=== PATIENT | female | born 1950 ===

== ENCOUNTER 2022-08-28 17:41 | Observation (INO) | payer OTHER, SELFPAY ==
--- NOTE | 2022-08-28 17:42 | DI.RAD.S_ITS ---
PROCEDURE: XR CHEST 1V INDICATIONS: chest pain TECHNIQUE: One view of the chest was acquired. COMPARISON: None. FINDINGS: Surgical changes and devices: None. Lungs and pleura: Lungs are clear. No pleural effusions or pneumothorax. Mediastinum: Mediastinal contours appear normal. Heart size is normal. Bones and chest wall: No suspicious bony lesions. Overlying soft tissues appear unremarkable. IMPRESSION: No acute process. Dictated by: Tony Beck M.D. on 08/28/2022 at 18:10 Approved by: Tony Beck M.D. on 08/28/2022 at 18:11
[2022-08-28 17:45] VITALS: BP 137/88; PULSE 60; RESP 18; TEMP 36.6; O2SAT 95; BMI 32.8
[2022-08-28 18:02] LABS: INR 0.9 (0.9-1.3); Prothrombin Time 10.3 SECONDS (10.1-12.7)
[2022-08-28 18:03] LABS: Add Manual Diff / Slide Review NO; Basophils Absolute Auto 0 /uL (0-100); Basophils Percent Auto 0.4 % (0-2); Eosinophils Absolute Auto 200 /uL (0-450); Eosinophils Percent Auto 1.6 % (2-4); Hematocrit 42.8 % (36-46); Hemoglobin 14.7 g/dL (12.0-16.0); Lymphocytes Absolute Auto 4400 /uL (1100-4500); Lymphocytes Percent Auto 36.4 % (25-40); Mean Corpuscular HGB Conc 34.3 % (30-36); Mean Corpuscular Hemoglobin 31.8 PG (26-34); Mean Corpuscular Volume 92.9 fL (80-100); Monocytes Absolute Auto 800 /uL (0-900); Monocytes Percent Auto 6.9 % (3-14); Neutrophils Absolute Auto 6600 /uL (1500-7000); Neutrophils Percent Auto 54.7 % (50-75); Platelet Count 250 X10^3/uL (150-400); Red Blood Cell Count 4.61 X10^6/uL (4.0-5.2); Red Cell Distribution Width 14.2 % (11.6-14.8); White Blood Cell Count 12.1 X10^3/uL (4.5-11.0)
[2022-08-28 18:04] LABS: PTT Partial Thromboplastin Tim 27 SECONDS (26-36)
[2022-08-28 18:07] LABS: Alanine Aminotransferase 24 IU/L (<35); Albumin 4.6 g/dL (3.5-5.0); Albumin Globulin Ratio 1.4 (1.0-2.8); Alkaline Phosphatase 143 U/L (38-126); Aspartate Aminotransferase 28 IU/L (14-36); BUN Creatinine Ratio 20.2 (6-22); Bilirubin Total 0.5 mg/dL (0.2-1.3); Blood Urea Nitrogen 20 mg/dL (7-17); Calcium 9.4 mg/dL (8.4-10.2); Carbon Dioxide 24 mmol/L (22-32); Chloride 106 mmol/L (98-107); Creatine Kinase 196 U/L (30-135); Estimated Glomerular Filt Rate > 60 mL/min (>60); Globulin 3.2 g/dL (1.7-4.1); Glucose 140 mg/dL (80-110); HEMOLYSIS 27 (0-50); Lipase 243 U/L (23-300); Magnesium 2.4 mg/dL (1.6-2.3); Potassium 3.9 mmol/L (3.4-5.1); Sodium 141 mmol/L (137-145); Total Protein 7.8 g/dL (6.3-8.2)
[2022-08-28 18:18] LABS: Troponin I < 0.012 ng/mL (0.01-0.034)
--- NOTE | 2022-08-28 18:33 | ED.SYNCOPE ---
HPI - Syncope General Chief Complaint: Syncope Stated Complaint: Near Syncope Time Seen by Provider: 08/28/22 18:20 Source: patient Mode of arrival: EMS Limitations: no limitations History of Present Illness HPI narrative: Patient brought in by ambulance for syncopal episode. Blood sugar 133. Patient denies recent or prevent headache chest pain palpitations shortness of breath back pain abdominal pain numbness or tingling. Patient states she had a normal day today with her usual activities. Did some cleaning at home. She did some rowing in her boat as she usually does. Did not feel like she was heat exhausted. Did not spend a lot of time outside. She has been eating through today although she is not been feeling hungry. No black or bloody stools. No nausea or vomiting or diarrhea. This is never happened to her before. She states she was standing and waiting to hear from her bicycle riding group where they were in ago, she felt dizzy, her companions caught her and lowered her down to the ground. No seizure activity. Patient is awake alert oriented x4 at this time. Fast exam is negative. No prior history of heart attack strokes or diabetes. No history of arrhythmia. No blood clots in legs or lungs. No history aortic aneurysm or dissection. No prevent diaphoresis or nausea Related Data Allergies Allergy/AdvReac Type Severity Reaction Status Date / Time iodine Allergy Severe Anaphylaxis Verified 08/28/22 17:48 Sulfa (Sulfonamide Allergy Severe Hives Verified 08/28/22 17:48 Antibiotics) Review of Systems Review of Systems Narrative: GENERAL: negative chills, fatigue, malaise, fever, sweats. HEENT: negative sinus pain, ear pain, sore throat RESPIRATORY: negative dyspnea, cough CARDIOVASCULAR: negative chest pain, palpitations GASTROINTESTINAL: negative nausea, vomiting, abdominal pain : negative dysuria, frequency, hematuria MUSCULOSKELETAL: negative muscle or bony pain SKIN: negative rash, skin lesions NEUROLOGIC: negative weakness, numbness, positive syncope positive dizziness ROS Unobtainable: All systems reviewed & are unremarkable except as noted in HPI and below Patient History Social History household members: spouse Smoking Status: Never smoker Smoking Status: Never smoker alcohol intake frequency: a few times a week Substance Use Type: does not use Exam Narrative Exam Narrative: GENERAL: in no distress, not toxic not dyspneic HEAD: Normocephalic. EYES: Pupils equal round ENT: Mucous membranes moist. NECK: Trachea midline. CARDIOVASCULAR: Regular rate and rhythm, soft systolic murmur RESPIRATORY: Clear to auscultation. Breath sounds equal bilaterally. No wheezes, rales, or rhonchi. GASTROINTESTINAL: Abdomen soft, non-tender EXTREMITIES: No gross deformities. BACK: No flank tenderness. NEURO: AOx4. Clear speech no facial droop light touch intact bilateral face hands and legs. Strong equal clinic manager. She is got a rag negative pronator drift. Fast exam is negative SKIN: Warm and dry PSYCH: Not anxious, is cooperative Initial Vital Signs Initial Vital Signs: Vital Signs Temperature 97.8 F 08/28/22 17:45 Pulse Rate 60 08/28/22 17:45 Respiratory Rate 18 08/28/22 17:45 Blood Pressure 137/88 08/28/22 17:45 Pulse Oximetry 95 08/28/22 17:45 Oxygen Delivery Method Room Air 08/28/22 17:45 Course Orders Ordered: ED Orders 08/29/22 05:20 Basic Metabolic Panel Routine Complete Blood Count AUTO DIFF Routine Acetaminophen (Acetaminophen 325 Mg Tablet) 650 mg PO Q6H PRN PRN Reason: Fever/Mild Pain (1-3) Enoxaparin Sodium (Enoxaparin 40 Mg/0.4 Ml Syringe) 40 mg SUBCUT DAILY SOBIA Ondansetron HCl (Ondansetron 4 Mg/2 Ml Inj) 4 mg IV Q8HR PRN PRN Reason: Nausea And Vomiting Discontinued Medications Sodium Chloride (Normal Saline 0.9%) 1,000 mls @ 1,000 mls/hr IV BOLUS ONE Stop: 08/28/22 22:56 Last Admin: 08/28/22 22:19 Dose: 1,000 mls/hr Documented By: MS Vital Signs Vital signs: Vital Signs - 8 hr 08/28/22 17:45 Temperature 97.8 F Pulse Rate 60 Respiratory Rate 18 Blood Pressure 137/88 Pulse Oximetry 95 Oxygen Delivery Method Room Air MDM - Syncope Lab Data 08/28/22 17:40 08/28/22 17:40 Labs: Lab Results 08/28/22 08/28/22 08/28/22 Range/Units 17:40 17:40 17:40 WBC 12.1 H (4.5-11.0) X10^3/uL RBC 4.61 (4.0-5.2) X10^6/uL Hgb 14.7 (12.0-16.0) g/dL Hct 42.8 (36-46) % MCV 92.9 (80-100) fL MCH 31.8 (26-34) PG MCHC 34.3 (30-36) % RDW 14.2 (11.6-14.8) % Plt Count 250 (150-400) X10^3/uL Neut % (Auto) 54.7 (50-75) % Lymph % (Auto) 36.4 (25-40) % [place] % (Auto) 6.9 (3-14) % Eos % (Auto) 1.6 L (2-4) % Baso % (Auto) 0.4 (0-2) % Neut # (Auto) 6600 (4155-4262) /uL Lymph # (Auto) 4400 (7925-4876) /uL [place] # (Auto) 800 (0-900) /uL Eos # (Auto) 200 (0-450) /uL Baso # (Auto) 0 (0-100) /uL PT 10.3 (10.1-12.7) SECONDS INR 0.9 (0.9-1.3) APTT 27 (26-36) SECONDS Sodium 141 (137-145) mmol/L Potassium 3.9 (3.4-5.1) mmol/L Chloride 106 (98-107) mmol/L Carbon Dioxide 24 (22-32) mmol/L BUN 20 H (7-17) mg/dL Creatinine 0.99 (0.52-1.04) mg/dL Estimated GFR > 60 (>60) mL/min BUN/Creatinine Ratio 20.2 (6-22) Glucose 140 H (80-110) mg/dL Calcium 9.4 (8.4-10.2) mg/dL Magnesium 2.4 H (1.6-2.3) mg/dL Total Bilirubin 0.5 (0.2-1.3) mg/dL AST 28 (14-36) IU/L ALT 24 (<35) IU/L Alkaline Phosphatase 143 H (38-126) U/L Total Creatine Kinase 196 H (30-135) U/L CK-MB (CK-2) 2.00 (<2.37) ng/mL CK-MB (CK-2) Rel Index 1.0 L (1.5-5.0) % Troponin I < 0.012 (0.01-0.034) ng/mL Total Protein 7.8 (6.3-8.2) g/dL Albumin 4.6 (3.5-5.0) g/dL Globulin 3.2 (1.7-4.1) g/dL Albumin/Globulin Ratio 1.4 (1.0-2.8) Lipase 243 (23-300) U/L SARS-CoV-2 (PCR) (Negative) 08/28/22 Range/Units 19:38 WBC (4.5-11.0) X10^3/uL RBC (4.0-5.2) X10^6/uL Hgb (12.0-16.0) g/dL Hct (36-46) % MCV (80-100) fL MCH (26-34) PG MCHC (30-36) % RDW (11.6-14.8) % Plt Count (150-400) X10^3/uL Neut % (Auto) (50-75) % Lymph % (Auto) (25-40) % [place] % (Auto) (3-14) % Eos % (Auto) (2-4) % Baso % (Auto) (0-2) % Neut # (Auto) (9000-6090) /uL Lymph # (Auto) (9261-8092) /uL [place] # (Auto) (0-900) /uL Eos # (Auto) (0-450) /uL Baso # (Auto) (0-100) /uL PT (10.1-12.7) SECONDS INR (0.9-1.3) APTT (26-36) SECONDS Sodium (137-145) mmol/L Potassium (3.4-5.1) mmol/L Chloride (98-107) mmol/L Carbon Dioxide (22-32) mmol/L BUN (7-17) mg/dL Creatinine (0.52-1.04) mg/dL Estimated GFR (>60) mL/min BUN/Creatinine Ratio (6-22) Glucose (80-110) mg/dL Calcium (8.4-10.2) mg/dL Magnesium (1.6-2.3) mg/dL Total Bilirubin (0.2-1.3) mg/dL AST (14-36) IU/L ALT (<35) IU/L Alkaline Phosphatase (38-126) U/L Total Creatine Kinase (30-135) U/L CK-MB (CK-2) (<2.37) ng/mL CK-MB (CK-2) Rel Index (1.5-5.0) % Troponin I (0.01-0.034) ng/mL Total Protein (6.3-8.2) g/dL Albumin (3.5-5.0) g/dL Globulin (1.7-4.1) g/dL Albumin/Globulin Ratio (1.0-2.8) Lipase (23-300) U/L SARS-CoV-2 (PCR) Negative (Negative) Imaging Data Chest x-ray: Radiologist's Impression: FINDINGS:? ? Surgical changes and devices:? None.? ? Lungs and pleura:? Lungs are clear.? No pleural effusions or pneumothorax.? ? Mediastinum:? Mediastinal contours appear normal.? Heart size is normal.? ? Bones and chest wall:? No suspicious bony lesions.? Overlying soft tissues appear unremarkable.? ? IMPRESSION:? No acute process. CT scan - head: Radiologist's Impression: PROCEDURE:? CT HEAD/BRAIN WO CON ? INDICATIONS:? Syncope ? TECHNIQUE:? Noncontrast 4.5 mm thick angled axial sections acquired from the foramen magnum to the vertex, with coronal and sagittal reformats.? For radiation dose reduction, the following was used:? automated exposure control, adjustment of mA and/or kV according to patient size.? ? COMPARISON:? None. ? FINDINGS:? Image quality:? Excellent.? ? CSF spaces:? Basal cisterns are patent.? No extra-axial fluid collections.? The ventricles are symmetric in size and shape.? ? Brain:? No intracranial bleeds or masses.? There is cerebral volume loss for age, with resultant ventricular and sulcal prominence.? There are periventricular and deep white matter chronic small vessel ischemic changes.? There is intracranial internal carotid artery atherosclerosis.? ? Skull and face:? Calvarium and visualized facial bones appear intact, without suspicious lesions.? ? Sinuses:? Visualized sinuses and mastoids are clear.? ? IMPRESSION:? No acute intracranial abnormality. MRI brain: Radiologist's Impression: [address] [address] Magnetic Resonance Report Signed Patient: Genevieve Grullon MR#: [id number] : 1950 Acct:[id number] Age/Sex: 71 / F Date of Service: 08/28/22 Loc: ED Accession Number: [id number] ?? Procedure: MR stroke Ordering Provider: Polo De La Paz MD PROCEDURE:? MR STROKE Pre- and post-contrast brain MRI, non-contrast brain MR angiogram, pre- and postcontrast neck MR angiogram ? INDICATIONS:? syncope ? TECHNIQUE:? Brain:? Noncontrast axial T1 spin echo, axial T2 fast spin echo, sagittal and axial FLAIR, coronal T2 fast spin echo, axial gradient echo, axial diffusion and ADC through the brain.? After the administration of contrast, axial 3D VIBE of the cranial vasculature and brain.? Brain MRA:? Non-contrast 3-D time of flight MR angiogram, with multiple mdkhxou-bmweznebe-aiygckqkjl (MIP) reformats performed.? Neck MRA:? Axial and sagittal TruFISP through the neck.? Coronal dynamic MR angiogram during administration of contrast in the arterial and venous phases, with 3-dimenstional pwyybbz-forkovcoh-pbshdiusfb (MIP) reformats constructed from subtraction images.? ? COMPARISON:? None. ? FINDINGS:? Image quality:? Excellent.? ? BRAIN:? CSF spaces:? Ventricles are normal in size and shape.? Basal cisterns are patent.? No extra-axial fluid collections.? Brain:? No intracranial bleeds or mass effects.? Mild diffuse cerebral volume loss.? Mild degree of patchy high FLAIR signal within the periventricular and subcortical white matter.? Rosales-white matter interface is normal.? Diffusion weighted images show no acute ischemic insults.? Brainstem appears normal.? Normal intravascular flow voids are present.? No abnormal intracranial enhancement.? Skull and face:? Calvarial marrow signal is normal.? Orbits appear normal.? Sinuses:? Sinuses and mastoids are clear.? ? BRAIN MR ANGIOGRAM:? Anterior circulation:? Intracranial internal carotid arteries are normal in size and enhancement.? The flow within the paired anterior cerebral arteries is normal and symmetric.? The flow within the middle cerebral arteries is normal and symmetric.? The anterior communicating artery is seen.? No stenoses, occlusions, or aneurysms.? Posterior circulation:? The visualized portions of the vertebral arteries demonstrate normal caliber, and join to form a normal appearing basilar artery.? The flow within the posterior cerebral arteries is normal and symmetric.? No stenoses, occlusions, or aneurysms.? ? NECK MR ANGIOGRAM:? Carotids:? Great vessels demonstrate a conventional anatomy as they arise from the aortic arch.? The origins of the common carotid arteries appear patent.? The calibers and courses of both common carotid arteries are normal.? The bifurcation regions appear normal bilaterally.? The internal carotid arteries demonstrate normal course and caliber. ? Posterior circulation:? The origins of the vertebral arteries appear patent.? More superior portions of both vertebral arteries demonstrate normal course and caliber, and join to form a normal appearing basilar artery.? Miscellaneous:? Subclavian arteries appear patent.? Pre-contrast images through the neck show no soft tissue abnormalities.? ? IMPRESSION:? ? BRAIN MRI:? 1. Volume loss and small vessel ischemic disease. 2. No acute process.? No recent infarct.? ? BRAIN MR ANGIOGRAM:? Negative cerebral MR angiography. ? NECK MR ANGIOGRAM:? 1. No internal carotid artery stenosis bilaterally. 2. Patent bilateral vertebral arteries. ? ? MDM Narrative Medical decision making narrative: Patient brought in by ambulance for syncopal episode. Blood sugar 133. Patient denies recent or prevent headache chest pain palpitations shortness of breath back pain abdominal pain numbness or tingling. Patient states she had a normal day today with her usual activities. Did some cleaning at home. She did some rowing in her boat as she usually does. Did not feel like she was heat exhausted. Did not spend a lot of time outside. She has been eating through today although she is not been feeling hungry. No black or bloody stools. No nausea or vomiting or diarrhea. This is never happened to her before. She states she was standing and waiting to hear from her bicycle riding group where they were in ago, she felt dizzy, her companions caught her and lowered her down to the ground. No seizure activity. Patient is awake alert oriented x4 at this time. Fast exam is negative. No prior history of heart attack strokes or diabetes. No history of arrhythmia. No blood clots in legs or lungs. No history aortic aneurysm or dissection. No prevent diaphoresis or nausea After history and exam CBC CMP magnesium urinalysis troponin EKG CT head chest x-ray no D-dimer at this time, patient has low risk for pulmonary embolism or dissection. Clinically not dissection or aneurysm. Patient experienced no pain. MDM CC: Syncope Complicating co-morbidities: None Data collected from: Patient and EMS Medical records reviewed: No previous visits here Differential considered: Includes but not limited to stroke seizure heart attack dehydration anemia arrhythmia aortic dissection pulmonary embolism Exam documented above, pertinent findings include: No focal neurological findings. Lab Test results independently reviewed as above. Pertinent findings: WBC 12.1 hemoglobin 14.7 hematocrit 42.8 platelets 250 INR 0.9 sodium 141 potassium 3.9 BUN 20 creatinine 0.99 glucose 140 AST 28 ALT 24 troponin less than 0.012 magnesium 2.4 Independently reviewed EKG as above right bundle-branch block sinus bradycardia [address] elevation or depression Imaging studies independently reviewed: Chest x-ray no acute process CT head as well as MRI stroke protocol no acute process Consultations: Spoke with hospitalist, dr ricci, will admit pt Treatments: Normal saline given by EMS Re-evaluations: Reviewed results with patient and . They do agree for admission. At this time laboratory studies imaging are reassuring Discussion: Appropriate for admission for observation for arrhythmia as well as balance workup for syncope including echocardiogram. I did reviewed with patient and agree for admit. I reviewed with hospitalist agrees for admit. Diagnosis: Syncope Discharge Plan Departure Patient Disposition: Admitted as Observation Clinical Impression: Syncope and collapse Admit Date/Time: 08/28/22 21:02 Admit Provider: Jamie Ricci
--- NOTE | 2022-08-28 18:34 | DI.CT.S_ITS ---
PROCEDURE: CT HEAD/BRAIN WO CON INDICATIONS: Syncope TECHNIQUE: Noncontrast 4.5 mm thick angled axial sections acquired from the foramen magnum to the vertex, with coronal and sagittal reformats. For radiation dose reduction, the following was used: automated exposure control, adjustment of mA and/or kV according to patient size. COMPARISON: None. FINDINGS: Image quality: Excellent. CSF spaces: Basal cisterns are patent. No extra-axial fluid collections. The ventricles are symmetric in size and shape. Brain: No intracranial bleeds or masses. There is cerebral volume loss for age, with resultant ventricular and sulcal prominence. There are periventricular and deep white matter chronic small vessel ischemic changes. There is intracranial internal carotid artery atherosclerosis. Skull and face: Calvarium and visualized facial bones appear intact, without suspicious lesions. Sinuses: Visualized sinuses and mastoids are clear. IMPRESSION: No acute intracranial abnormality. Dictated by: Tony Beck M.D. on 08/28/2022 at 18:59 Approved by: Tony Beck M.D. on 08/28/2022 at 18:59
--- NOTE | 2022-08-28 19:02 | DI.MRI.S_ITS ---
PROCEDURE: MR STROKE Pre- and post-contrast brain MRI, non-contrast brain MR angiogram, pre- and postcontrast neck MR angiogram INDICATIONS: syncope TECHNIQUE: Brain: Noncontrast axial T1 spin echo, axial T2 fast spin echo, sagittal and axial FLAIR, coronal T2 fast spin echo, axial gradient echo, axial diffusion and ADC through the brain. After the administration of contrast, axial 3D VIBE of the cranial vasculature and brain. Brain MRA: Non-contrast 3-D time of flight MR angiogram, with multiple npflqcb-buvhinahx-wxslktsyvc (MIP) reformats performed. Neck MRA: Axial and sagittal TruFISP through the neck. Coronal dynamic MR angiogram during administration of contrast in the arterial and venous phases, with 3-dimenstional zmzaxtb-wnbzlfrwl-eplmjdcthp (MIP) reformats constructed from subtraction images. COMPARISON: None. FINDINGS: Image quality: Excellent. BRAIN: CSF spaces: Ventricles are normal in size and shape. Basal cisterns are patent. No extra-axial fluid collections. Brain: No intracranial bleeds or mass effects. Mild diffuse cerebral volume loss. Mild degree of patchy high FLAIR signal within the periventricular and subcortical white matter. Rosales-white matter interface is normal. Diffusion weighted images show no acute ischemic insults. Brainstem appears normal. Normal intravascular flow voids are present. No abnormal intracranial enhancement. Skull and face: Calvarial marrow signal is normal. Orbits appear normal. Sinuses: Sinuses and mastoids are clear. BRAIN MR ANGIOGRAM: Anterior circulation: Intracranial internal carotid arteries are normal in size and enhancement. The flow within the paired anterior cerebral arteries is normal and symmetric. The flow within the middle cerebral arteries is normal and symmetric. The anterior communicating artery is seen. No stenoses, occlusions, or aneurysms. Posterior circulation: The visualized portions of the vertebral arteries demonstrate normal caliber, and join to form a normal appearing basilar artery. The flow within the posterior cerebral arteries is normal and symmetric. No stenoses, occlusions, or aneurysms. NECK MR ANGIOGRAM: Carotids: Great vessels demonstrate a conventional anatomy as they arise from the aortic arch. The origins of the common carotid arteries appear patent. The calibers and courses of both common carotid arteries are normal. The bifurcation regions appear normal bilaterally. The internal carotid arteries demonstrate normal course and caliber. Posterior circulation: The origins of the vertebral arteries appear patent. More superior portions of both vertebral arteries demonstrate normal course and caliber, and join to form a normal appearing basilar artery. Miscellaneous: Subclavian arteries appear patent. Pre-contrast images through the neck show no soft tissue abnormalities. IMPRESSION: BRAIN MRI: 1. Volume loss and small vessel ischemic disease. 2. No acute process. No recent infarct. BRAIN MR ANGIOGRAM: Negative cerebral MR angiography. NECK MR ANGIOGRAM: 1. No internal carotid artery stenosis bilaterally. 2. Patent bilateral vertebral arteries. Dictated by: Tony Beck M.D. on 08/28/2022 at 19:53 Approved by: Tony Beck M.D. on 08/28/2022 at 19:55
[2022-08-28 20:01] LABS: COVID19 -Nasal RAPID Negative (Negative)
[2022-08-28 21:26] VITALS: BMI 32.8
[2022-08-28 21:57] VITALS: BP 152/75; BP 158/78; BP 177/66; PULSE 52; PULSE 53; PULSE 55
--- NOTE | 2022-08-28 21:57 | DI.ECHO.S_ITS ---
[facility] +---------+ : : [address] : : : : [id number] : : : : Phone: [phone] Echocardiogram Report + + :Name: DANYA INIGUEZ Study Date: 08/29/2022 Height: 65 in : :[facility] ReadingLocation: Weight: 197 lb : : Gender: Female BSA: 2.0 m2 : :: 1950 Age: 71 yrs BP: 151/74 mmHg: :Reason For Study: SYNCOPE : :Ordering Physician: CHARI, : :KEEGAN Performed By: Radha Miller : :Referring: KEEGAN MARCELINO : + + Interpretation Summary The ejection fraction is estimated to be 60-65%. Diastolic parameters suggest probable normal left ventricular diastolic function and normal filling pressures. The right ventricle is normal in size and function. The IVC is dilated (diameter is greater than 2.1 cm) yet it collapses greater than 50% with a sniff. This suggests a right atrial pressure of 8 mm Hg. No significant valvular abnormallity. Procedure: A two-dimensional transthoracic echocardiogram with color flow and Doppler was performed. The study quality was technically adequate. There is no prior echocardiogram noted for this patient. The patient was in sinus bradycardia with heart rates between 53-60 bpm during the exam. Left Ventricle: The left ventricle is normal in size and wall thickness. The ejection fraction is estimated to be 60-65%. Left ventricular wall motion is normal. Diastolic parameters suggest probable normal left ventricular diastolic function and normal filling pressures. Right Ventricle: The right ventricle is normal in size and function. Atria: The left atrial size is normal. Right atrial size is normal. There is no Doppler evidence for an interatrial shunt. Mitral Valve: The mitral valve is normal in structure and function. There is trace mitral regurgitation. Aortic Valve: The aortic valve is trileaflet. The aortic valve opens well. There is no aortic valve stenosis. No aortic regurgitation is present. Tricuspid Valve: The tricuspid valve is normal in structure and function. There is a trace or physiologic amount of tricuspid regurgitation. Pulmonic Valve: The pulmonic valve leaflets are thin and pliable; valve motion is normal. There is trace pulmonic regurgitation. Great Vessels: The aortic root is normal size. The dimensions of the ascending aorta are normal. The IVC is dilated (diameter is greater than 2.1 cm) yet it collapses greater than 50% with a sniff. This suggests a right atrial pressure of 8 mm Hg. Pericardium/ Pleura There is no pericardial effusion. There is no pleural effusion. MMode/2D Measurements & Calculations LVIDd: 4.7 cm LVOT diam: 2.0 cm LVIDs: 3.4 cm Ao root diam: 2.6 cm FS: 26.8 % asc Aorta Diam: 2.9 cm IVSd: 0.72 cm LVPWd: 0.66 cm LV villanueva. diameter/BSA (cm/m^2): 2.4 LV sys. diameter/BSA (cm/m^2): 1.7 LA A2 area: 19.1 cm2 RA long axis: 4.8 cm LA A4 area: 12.4 cm2 RA area: 13.2 cm2 LA length (vol): 4.8 cm RA vol: 31.0 ml LA vol: 42.0 ml RA : 15.8 ml/m2 LA vol index: 21.4 ml/m2 IVC diam: 2.1 cm RVD1 (basal): 2.9 cm RVD2 (mid): 2.6 cm TAPSE: 2.5 cm Doppler Measurements & Calculations Ao V2 max: 174.8 cm/sec LVOT Max Aftab: 102.2 cm/sec Ao V2 mean: 121.7 cm/sec LV V1 max P.2 mmHg Ao max P.7 mmHg LV V1 VTI: 25.4 cm Ao mean P.6 mmHg KARI(I,D): 1.9 cm2 Ao V2 VTI: 41.6 cm KARI(V,D): 1.8 cm2 sev ratio: 0.61 KARI indexed to BSA (cm^2/m^2): 0.95 MV E max aftab: 103.8 cm/sec PA V2 max: 97.5 cm/sec MV A max aftab: 78.5 cm/sec PA V2 mean: 67.4 cm/sec MV E/A: 1.3 PA mean P.0 mmHg Med Peak E' Aftab: 10.5 cm/sec PA pr(Accel): 51.6 mmHg E/E' med: 9.8 Lat Peak E' Aftab: 11.0 cm/sec E/E' lat: 9.5 E/e' average: 9.7 MV dec time: 0.18 sec SVLVOT): 77.7 ml Reading Physician:PM
[2022-08-28] MEDS: SODIUM CHLORIDE 0.9% 1,000 ML 1000 ML IV (22:19)
--- NOTE | 2022-08-28 22:49 | PM.HP.1 ---
History of Present Illness History of Present Illness Date Patient Seen: 08/28/22 Time Patient Seen: 20:30 Chief complaint: Near Syncope Narrative: Ms. Grullon is a 71W with no significant past medical history who is brought in for a syncopal event. She is at baseline active. Today she rowed in the morning. This afternoon she was planning to go for a bike ride. She was standing waiting and felt sudden onset dizziness. She cant describe if it was more room spinning or lightheaded. She passed out and lost consciousness, her friends caught her and no head strike. She currently feels a little dehydrated, but at the time she was not, she thinks she feels dehydrated because has had nothing to drink since arriving in the ED. She was not outside in the heat much today. She was eating and drinking normally. She had no stood up suddenly or just went to the bathroom. She had no chest pain, palpitations or shortness of breath. She had no postictal confusion or witnessed seizure activity. Once she arrived to the ED she was feeling completely normal. In the ED workup was done, vitals notable for afebrile, heart rate 60s, respiratory rate 18, blood pressure 130s/80s, sats 95% on room air. Labs reviewed by me and WBC 12.1, hgb 14.7, plts 250. Na 141, BUN 20, creatinine 0.99. Troponin negative. Chest xray reviewed by me and and no acute process. CT head reviewed by me and no acute process. MRI brain with no acute process. She was admitted for further workup of syncope. [facility] Social History Smoking Status: Never smoker Meds Home Medications and Allergies Allergies Allergy/AdvReac Type Severity Reaction Status Date / Time iodine Allergy Severe Anaphylaxis Verified 08/28/22 17:48 Sulfa (Sulfonamide Allergy Severe Hives Verified 08/28/22 17:48 Antibiotics) Review of Systems Review of Systems Narrative: 14 systems reviewed and negative aside from what is noted in HPI Exam Vital Signs (past 8 hours): - 08/28/22 17:45 08/28/22 21:54 Temperature 97.8 F Pulse Rate 60 Respiratory Rate 18 Blood Pressure 137/88 Pulse Oximetry 95 Oxygen Delivery Method Room Air Room Air Oxygen Delivery Method Room Air Narrative Exam Narrative: GEN: no acute distress HEENT: dry mucous membranes, PERRL NECK: trachea midline, no JVD PULM: clear bilaterally, no wheezes, rhonchi, rales CV: regular, rate and rhythm, no murmurs ABD: soft, nontender, nondistended, no organomegaly, normal bowel sounds EXT: warm and well perfused with no edema NEURO: awake, alert, oriented, no focal deficits Objective Labs 08/28/22 17:40 08/28/22 17:40 Labs: Laboratory Results - last 24 hr 08/28/22 08/28/22 08/28/22 17:40 17:40 17:40 WBC 12.1 H RBC 4.61 Hgb 14.7 Hct 42.8 MCV 92.9 MCH 31.8 MCHC 34.3 RDW 14.2 Plt Count 250 Neut % (Auto) 54.7 Lymph % (Auto) 36.4 [place] % (Auto) 6.9 Eos % (Auto) 1.6 L Baso % (Auto) 0.4 Neut # (Auto) 6600 Lymph # (Auto) 4400 [place] # (Auto) 800 Eos # (Auto) 200 Baso # (Auto) 0 PT 10.3 INR 0.9 APTT 27 Sodium 141 Potassium 3.9 Chloride 106 Carbon Dioxide 24 BUN 20 H Creatinine 0.99 Estimated GFR > 60 BUN/Creatinine Ratio 20.2 Glucose 140 H Calcium 9.4 Magnesium 2.4 H Total Bilirubin 0.5 AST 28 ALT 24 Alkaline Phosphatase 143 H Total Creatine Kinase 196 H CK-MB (CK-2) 2.00 CK-MB (CK-2) Rel Index 1.0 L Troponin I < 0.012 Total Protein 7.8 Albumin 4.6 Globulin 3.2 Albumin/Globulin Ratio 1.4 Lipase 243 SARS-CoV-2 (PCR) 08/28/22 19:38 WBC RBC Hgb Hct MCV MCH MCHC RDW Plt Count Neut % (Auto) Lymph % (Auto) [place] % (Auto) Eos % (Auto) Baso % (Auto) Neut # (Auto) Lymph # (Auto) [place] # (Auto) Eos # (Auto) Baso # (Auto) PT INR APTT Sodium Potassium Chloride Carbon Dioxide BUN Creatinine Estimated GFR BUN/Creatinine Ratio Glucose Calcium Magnesium Total Bilirubin AST ALT Alkaline Phosphatase Total Creatine Kinase CK-MB (CK-2) CK-MB (CK-2) Rel Index Troponin I Total Protein Albumin Globulin Albumin/Globulin Ratio Lipase SARS-CoV-2 (PCR) Negative Assessment & Plan Assessment & Plan narrative: 1. Syncope -had neurologic workup with normal CT head and brain mri -EKG shows sinus rhythm, with PVCs -negative troponin, no evidence of PR -telemetry shows no arrhythmia -she is dehydrated on exam, but story sounds more sudden onset and severe than what would expect from dehydration -plan for observation to further monitor -give IV fluids -orthostatics in AM -check echo I have discussed plan and obtained history from patient and family at bedside. I have discussed plan of care with ED physician and bedside nurse. I have reviewed labs, ct head, ekg. CODE: Full Proxy: Colin Herrera, Quality [facility] - Meds 'Current medications' to include all prescriptions, [id number] products, herbals, cannabis/cannabidiol products, and vitamin/mineral/dietary (nutritional) supplements. I have utilized all available resources to obtain, update, or review the patient?s current medications. [If Yes, STOP here]: Yes
[2022-08-29] VITALS: BP 151/74; PULSE 55; RESP 18; TEMP 36.7; O2SAT 97
[2022-08-29 05:55] LABS: Add Manual Diff / Slide Review NO; Basophils Absolute Auto 100 /uL (0-100); Eosinophils Absolute Auto 200 /uL (0-450); Eosinophils Percent Auto 2.1 % (2-4); Hematocrit 40.7 % (36-46); Hemoglobin 13.7 g/dL (12.0-16.0); Lymphocytes Absolute Auto 2200 /uL (1100-4500); Lymphocytes Percent Auto 27.5 % (25-40); Mean Corpuscular HGB Conc 33.7 % (30-36); Mean Corpuscular Hemoglobin 31.3 PG (26-34); Mean Corpuscular Volume 92.9 fL (80-100); Monocytes Absolute Auto 500 /uL (0-900); Monocytes Percent Auto 6.7 % (3-14); Neutrophils Absolute Auto 5100 /uL (1500-7000); Neutrophils Percent Auto 62.7 % (50-75); Platelet Count 180 X10^3/uL (150-400); Red Blood Cell Count 4.38 X10^6/uL (4.0-5.2); Red Cell Distribution Width 14.1 % (11.6-14.8); White Blood Cell Count 8.1 X10^3/uL (4.5-11.0)
[2022-08-29 06:00] VITALS: BP 166/79; PULSE 51; RESP 18; TEMP 36.6; O2SAT 98
[2022-08-29 06:07] LABS: BUN Creatinine Ratio 17.5 (6-22); Blood Urea Nitrogen 14 mg/dL (7-17); Calcium 8.7 mg/dL (8.4-10.2); Carbon Dioxide 24 mmol/L (22-32); Chloride 111 mmol/L (98-107); Estimated Glomerular Filt Rate > 60 mL/min (>60); Glucose 100 mg/dL (80-110); HEMOLYSIS < 15 (0-50); Potassium 3.9 mmol/L (3.4-5.1); Sodium 141 mmol/L (137-145)
[2022-08-29 08:24] VITALS: O2SAT 97
[2022-08-29 08:37] VITALS: BP 139/64; PULSE 52; RESP 20; TEMP 36.9; O2SAT 95
--- NOTE | 2022-08-29 08:48 | CM.DANOTE ---
DCP: Case received, EMR reviewed and met with patient. Introduced self and role. Was able to obtain information regarding patient's baseline activity level prior to hospitalization. DCP assessment completed with information currently available. Patient is a 71 year old female who admitted yesterday evening to the care of the hospitalist team. PCP: PRISCILA Plasencia ([place] facility). Payer: conformed: [facility]. Patient came to the hospital via ambulance secondary to having a syncopal episode. Notes indicated that patient was active prior to incident, rowing in her boat, bicycling (is in a group), felt dizzy, fainted and her friends lowered her to the ground. Patient is here for a work up secondary to syncope. Met with patient in her room. She is alert and oriented, pleasant. She is active, resides in [place] with spouse, Colin. 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 She is feeling better, is normally healthy.Confirmed that she sees a PA at the [place] office in [place]. P: DCP to continue to follow. Patient most likely will go home when deemed medically stable. Charlette Logan RN/[employer] Discharge Planning/Care Management CM Discharge Assessment Start: 08/29/22 08:45 Freq: Status: Active Protocol: Document 08/29/22 08:46 (Rec: 08/29/22 08:47 [id number]) Discharge Planning Assessment Assigned Counsel Charlette Logan RN/[employer] Advance Directives? No History Provided By Patient,Significant Other Prior Living Arrangements Apartment/Condo Household Members spouse Type of transporation used prior to Drives own vehicle admit Independent with ADL's Yes Is patient alert and oriented? Yes Caregiver for Another No Barriers to Discharge No Discharge Plan Home Transportation Arrangement Spouse Referrals Initiated None needed Whiteboard Updated in Patient Room with Yes name and ext. # of Counsel Review Status In Process Next Review Type Continued Stay Review
--- NOTE | 2022-08-29 09:07 | PC.NURSE ---
Day shift: Pt in room from ED at approx 0900. C/o ABD pain and appears very uncomfortable. HR 111 and other VS WNL. RA 100%. Per ED RN Pt removed NG tube in ED. Oriented to room and call light. Call light in reach. Pt does have BT's present.
[2022-08-29 12:12] VITALS: BP 178/83; PULSE 61; RESP 19; TEMP 37.1; O2SAT 95
--- NOTE | 2022-08-29 14:07 | PM.DS.1 ---
History of Present Illness History of Present Illness Date Patient Seen: 08/29/22 Time Patient Seen: 14:07 Chief complaint: Near Syncope Narrative: Per admitting provider, Ms. Grullon is a 71W with no significant past medical history who is brought in for a syncopal event. She is at baseline active. Today she rowed in the morning. This afternoon she was planning to go for a bike ride. She was standing waiting and felt sudden onset dizziness. She cant describe if it was more room spinning or lightheaded. She passed out and lost consciousness, her friends caught her and no head strike. She currently feels a little dehydrated, but at the time she was not, she thinks she feels dehydrated because has had nothing to drink since arriving in the ED. She was not outside in the heat much today. She was eating and drinking normally. She had no stood up suddenly or just went to the bathroom. She had no chest pain, palpitations or shortness of breath. She had no postictal confusion or witnessed seizure activity. Once she arrived to the ED she was feeling completely normal. In the ED workup was done, vitals notable for afebrile, heart rate 60s, respiratory rate 18, blood pressure 130s/80s, sats 95% on room air. Labs reviewed by me and WBC 12.1, hgb 14.7, plts 250. Na 141, BUN 20, creatinine 0.99. Troponin negative. Chest xray reviewed by me and and no acute process. CT head reviewed by me and no acute process. MRI brain with no acute process. She was admitted for further workup of syncope. Discharge Providers Provider Date of admission: 08/28/22 21:02 Discharge Date: 08/29/22 Discharge provider: Bayron Washington DO Summary Hospital Course Discharge Diagnosis: 1. Syncope 2. HTN, chronic 3. HLD, chronic 4. Gout, Chronic Hospital Course: 71 year old female with PMH of HTN, HLD, gout admitted after an episode of sycnope. Neurologic workup was unremarkable with normal head CT and brain MRI. EKG showed PVCs, but no mya arrythmias were noted during her stay. Echocardiogram was recommended, which was unremarkable, but showed evidence of dehydration. Her orthostatics were also unremarkable. After negative evaluation, patient was discharged home after suspecting dehydration / hypovolemia as the etiology of her syncope. Unless symptoms return no additional follow up recommended at this time, though if recurrent symptoms can consider holter monitor. Time Spent with Patient Time spent: Less than 30 minutes Exam Vital Signs (past 8 hours): - 08/29/22 08:24 08/29/22 08:37 08/29/22 12:12 Temperature 98.5 F 98.8 F Pulse Rate 52 L 61 Respiratory Rate 20 19 Blood Pressure 139/64 178/83 H Pulse Oximetry 97 95 95 Oxygen Delivery Method Room Air Oxygen Flow Rate 0 0 Oxygen Delivery Method Room Air Oxygen Flow Rate 0 Narrative Exam Narrative: GEN: no acute distress HEENT: dry mucous membranes, PERRL NECK: trachea midline, no JVD PULM: clear bilaterally, no wheezes, rhonchi, rales CV: regular, rate and rhythm, no murmurs ABD: soft, nontender, nondistended, no organomegaly, normal bowel sounds EXT: warm and well perfused with no edema NEURO: awake, alert, oriented, no focal deficits Objective Labs 08/29/22 05:20 08/29/22 05:20 Labs: Laboratory Results - last 24 hr 08/28/22 08/28/22 08/28/22 17:40 17:40 17:40 WBC 12.1 H RBC 4.61 Hgb 14.7 Hct 42.8 MCV 92.9 MCH 31.8 MCHC 34.3 RDW 14.2 Plt Count 250 Neut % (Auto) 54.7 Lymph % (Auto) 36.4 [place] % (Auto) 6.9 Eos % (Auto) 1.6 L Baso % (Auto) 0.4 Neut # (Auto) 6600 Lymph # (Auto) 4400 [place] # (Auto) 800 Eos # (Auto) 200 Baso # (Auto) 0 PT 10.3 INR 0.9 APTT 27 Sodium 141 Potassium 3.9 Chloride 106 Carbon Dioxide 24 BUN 20 H Creatinine 0.99 Estimated GFR > 60 BUN/Creatinine Ratio 20.2 Glucose 140 H Calcium 9.4 Magnesium 2.4 H Total Bilirubin 0.5 AST 28 ALT 24 Alkaline Phosphatase 143 H Total Creatine Kinase 196 H CK-MB (CK-2) 2.00 CK-MB (CK-2) Rel Index 1.0 L Troponin I < 0.012 Total Protein 7.8 Albumin 4.6 Globulin 3.2 Albumin/Globulin Ratio 1.4 Lipase 243 SARS-CoV-2 (PCR) 08/28/22 08/29/22 08/29/22 19:38 05:20 05:20 WBC 8.1 RBC 4.38 Hgb 13.7 Hct 40.7 MCV 92.9 MCH 31.3 MCHC 33.7 RDW 14.1 Plt Count 180 Neut % (Auto) 62.7 Lymph % (Auto) 27.5 [place] % (Auto) 6.7 Eos % (Auto) 2.1 Baso % (Auto) 1.0 Neut # (Auto) 5100 Lymph # (Auto) 2200 [place] # (Auto) 500 Eos # (Auto) 200 Baso # (Auto) 100 PT INR APTT Sodium 141 Potassium 3.9 Chloride 111 H Carbon Dioxide 24 BUN 14 Creatinine 0.80 Estimated GFR > 60 BUN/Creatinine Ratio 17.5 Glucose 100 Calcium 8.7 Magnesium Total Bilirubin AST ALT Alkaline Phosphatase Total Creatine Kinase CK-MB (CK-2) CK-MB (CK-2) Rel Index Troponin I Total Protein Albumin Globulin Albumin/Globulin Ratio Lipase SARS-CoV-2 (PCR) Negative [facility] Social History household members: spouse Smoking Status: Never smoker Discharge Plan Discharge Plan Patient Disposition: Home Provider Discharge Comment: You were admitted to the hospital with an episode of syncope. This was likely due to some mild dehydration, try to stay well hydrated over the next couple of days or if doing outdoor activity. If symptoms recur please seek additional evaluation with your primary care provider. Discharge orders & Medications Prescriptions: Continued latanoprost 0.005 % drops 1 drp ophthalmic (eye) DAILY atorvastatin 40 mg tablet 40 mg PO DAILY allopurinol 100 mg tablet 100 mg PO DAILY losartan 25 mg tablet 25 mg PO DAILY Diet/Activity/Treatments Diet: Diet as Tolerated Activity: As tolerated Visit Report/Discharge Packet Instructions: DI for Syncope in Adults (Fainting), Fainting, Dehydration, Echocardiogram, DI for Dehydration -- Adult Stand Alone Forms: Patient Portal/API, Stroke Signs & Symptoms Discharge Data Attending Provider: Jamie King Admit Date/Time: 08/28/22 21:02 Discharges patient from system. Discharge Date/Time: 08/29/22 14:42
--- NOTE | 2022-08-29 14:41 | PC.NURSE ---
Day shift: Paperwork signed and all questions answered. Has all personal belongings. NO new MD scripts. Pt's Spouse is driving her home. Left unit at approx 1440 via WC. Taken to car by IGNACIO Hilton.
== END 2022-08-29 14:42 | disposition home or self-care (01) ==
LOC: ED 20:00 → AC 21:02
PROVIDERS: Emergency Medicine; Admitting Provider Internal Medicine; Emergency Provider Emergency Medicine; Referring Provider Emergency Medicine; Visit Provider Internal Medicine
DX: R55 Syncope and collapse (principal); I49.3 Ventricular premature depolarization; I10 Essential (primary) hypertension; E78.5 Hyperlipidemia, unspecified; M1A.9XX0 Chronic gout, unspecified, without tophus (tophi); Z20.822 Contact with and (suspected) exposure to COVID-19
CPT/HCPCS: 36415; 70450; 70548; 70553; 71045; 80048; 80053; 82550; 82553; 83690; 83735; 84484; 85025; 85610; 85730; 87635; 93005; 93306; 99284; C9803; G0378